=== PATIENT | male | born 1950 | race Caucasian/White ===

== ENCOUNTER 2018-02-06 18:08 | Emergency (ER) | payer OTHER ==
--- NOTE | 2018-02-06 18:19 | PDOC ---
History of Present Illness - History of Present Illness Initial Comments: 02/06/18 18:28 Patient is a 67 year old male, who presents to the ED with hand injury s/p dog bite. Patient states that he got in between his medium sized dog and another smaller dog and his sustained a bite on his left 4th and 5th finger. Patient states he is up-to-date on his tetanus. Surgical Hx: right hip replacement. <Kimberlee Bonilla - Last Filed: 02/06/18 21:24> <Babita Phelps - Last Filed: 02/07/18 07:12> - General Chief Complaint: Bite Stated Complaint: LEFT HAND 4TH AND 5TH FINGER DOG BITE Time Seen by Provider: 02/06/18 18:17 Past History <Kimberlee Bonilla - Last Filed: 02/06/18 21:24> <Babita Phelps - Last Filed: 02/07/18 07:12> - Past Medical History Allergies/Adverse Reactions: Allergies Allergy/AdvReac Type Severity Reaction Status Date / Time No Known Allergies Allergy Verified 02/06/18 18:09 Home Medications: Ambulatory Orders Amox-Tr/K Cl [Augmentin - 875Mg Tablet] 1 tab PO BID #14 tablet 02/06/18 Buspirone HCl [Buspar -] 5 mg PO DAILY 02/06/18 Cholecalciferol (Vitamin D3) [Vitamin D] 2,000 unit PO DAILY 02/06/18 Citalopram Hydrobromide [Celexa -] 10 mg PO DAILY 02/06/18 Omeprazole 10 mg PO DAILY 02/06/18 Oxycodone HCl/Acetaminophen [Percocet 5-325 mg Tablet] 1 tab PO Q6H PRN #8 tablet MDD 4 tabs 02/06/18 Tamsulosin HCl 0.4 mg PO DAILY 02/06/18 Review of Systems - Review of Systems Comments:: GENERAL/CONSTITUTIONAL: No fever or chills. No weakness. HEAD, EYES, EARS, NOSE AND THROAT: No change in vision. No ear pain or discharge. No sore throat. SKIN: +abrasions/puncture wound on left 4 and 5th finger. No rash <Kimberlee Bonilla - Last Filed: 02/06/18 21:24> *Physical Exam - Vital Signs Last Vital Signs Temp Pulse Resp BP Pulse Ox 98.3 F 89 20 144/99 99 02/06/18 18:08 02/06/18 18:08 02/06/18 18:08 02/06/18 18:08 02/06/18 18:08 <Kimberlee Bonilla - Last Filed: 02/06/18 21:24> - Physical Exam Comments: GENERAL: Awake, alert, and fully oriented, in no acute distress HEAD: No signs of trauma EXTREMITIES: L hand with multiple abrasions and puncture amanda to 4th and 5th digits. 1cm laceration overlying the 5th PIP joint. Remainder of extremities with normal range of motion, no edema. No clubbing or cyanosis. No cords, erythema, or tenderness NEUROLOGICAL: Cranial nerves II through XII grossly intact. Normal speech, normal gait. Motor and sensation intact. SKIN: Warm, Dry, normal turgor, no rashes. Lacerations and abrasions as noted above. <Babita Phelps - Last Filed: 02/07/18 07:12> ED Treatment Course - RADIOLOGY Radiograph Interpretation: 02/06/18 21:24 X-ray left hand Findings: Linear calcification in soft tissues dorsal to the PIP of the index finger, likely chronic. Another similar small calcification adjacent to the middle phalanx of the little finger on palmar aspect. No acute fracture or dislocation Reported by: Bruce Santacruz MD 02/06/18 20:46 EST - Consult/PCP Case Discussed with Personal Care Physician Not on Staff:: Awaiting call back from [facility]. Called at 7:50p <Kimberlee Bonilla - Last Filed: 02/06/18 21:24> Medical Decision Making - Medical Decision Making 02/06/18 19:[address] Bell at shift change. Currently wound is being irrigated. Awaiting reading of XR to determine if the opacity to the 5th digit is a bone fragment or FB. Will require sutures to the palmar surface of the 5th digit, as it overlies a joint. Augmentin has been given. <Babita Phelps - Last Filed: 02/07/18 07:12> *DC/Admit/Observation/Transfer - Attestations Scribe Attestion: 02/06/18 18:31 Documentation prepared by Kimberlee Bonilla, acting as biomedical scientist for Babita Phelps MD. <Kimberlee Bonilla - Last Filed: 02/06/18 21:24> - Discharge Dispostion Admit: No <Babita Phelps - Last Filed: 02/07/18 07:12> Diagnosis at time of Disposition: Dog bite Qualifiers: Encounter type: initial encounter Qualified Code(s): W54.0XXA - Bitten by dog, initial encounter - Discharge Dispostion Disposition: HOME Condition at time of disposition: Stable - Prescriptions Prescriptions: Amox-Tr/K Cl [Augmentin - 875Mg Tablet] 1 tab PO BID #14 tablet Oxycodone HCl/Acetaminophen [Percocet 5-325 mg Tablet] 1 tab PO Q6H PRN #8 tablet MDD 4 tabs PRN Reason: Pain - Referrals Referrals: Solo Braun MD [Staff Physician] - - Patient Instructions Printed Discharge Instructions: DI for Dog Bite Additional Instructions: Take the augmentin as prescribed for 1 week to prevent infections. You must follow up with a hand specialist within 48 hours. Call the number provided to make an appointment with our orthopedics clinic. If you experience any worsening pain, swelling, redness, abnormal drainage, or any other concerning symptoms, return to the ER immediately.
[2018-02-06] MEDS ORDERED: AMOX TR/POT CLAV 875MG/125MG TABLETS (FP) PO ONE (18:24)
[2018-02-06 18:38] VITALS: BP 144/99; PULSE 89; TEMP 98.3; BMI 27.3
[2018-02-06] MEDS ORDERED: AMOX TR/POT CLAV 875MG/125MG TABLETS (FP) ONE (19:01)
--- NOTE | 2018-02-06 20:07 | PDOC ---
*Physical Exam - Vital Signs Last Vital Signs Temp Pulse Resp BP Pulse Ox 98.3 F 89 20 144/99 99 02/06/18 18:08 02/06/18 18:08 02/06/18 18:08 02/06/18 18:08 02/06/18 18:08 ED Treatment Course - Medications Given in the ED: ED Medications Discontinued Medications Generic Name Dose Route Start Last Admin Trade Name Freq PRN Reason Stop Dose Admin Amoxicillin/Clavulanate Potassium 1 tab 02/06/18 18:24 02/06/18 19:05 Augmentin - 875mg Tablet PO 02/06/18 18:25 1 tab ONCE ONE Administration - Consult/PCP Case Discussed with Personal Care Physician Not on Staff:: Awaiting call back from [facility]. Called at 7:50p Medical Decision Making - Medical Decision Making 02/06/18 20:04 67 M with bite injury to L hand. Sign out taken from Dr. Phelps at 7PM, pending X ray and wound closure. X ray shows radio opaque fragment of 5th digit. 02/06/18 21:04 Prelim read of x-ray calls opacity likely chronic. Lac on palmar surface of 5th digit repaired with 2 sutures. Pt placed in finger splint. I spoke with MEHDI Leigh, who agrees with wound closure and discharge with antibiotics (augmentin). Pt to f/u with ortho on . Pt is well appearing, with normal vitals. Clinically stable for DC at this time. I discussed the physical exam findings, ancillary test results and final diagnoses with the patient. I answered all of the patient's questions. The patient was satisfied with the care received and felt comfortable with the discharge plan and treatment plan. The patient agrees to follow up with ortho within 24-72 hours. *DC/Admit/Observation/Transfer Diagnosis at time of Disposition: Dog bite Qualifiers: Encounter type: initial encounter Qualified Code(s): W54.0XXA - Bitten by dog, initial encounter - Discharge Dispostion Disposition: HOME Condition at time of disposition: Stable - Prescriptions Prescriptions: Amox-Tr/K Cl [Augmentin - 875Mg Tablet] 1 tab PO BID #14 tablet Oxycodone HCl/Acetaminophen [Percocet 5-325 mg Tablet] 1 tab PO Q6H PRN #8 tablet MDD 4 tabs PRN Reason: Pain - Referrals Referrals: Solo Braun MD [Staff Physician] - - Patient Instructions Printed Discharge Instructions: DI for Dog Bite Additional Instructions: Take the augmentin as prescribed for 1 week to prevent infections. You must follow up with a hand specialist within 48 hours. Call the number provided to make an appointment with our orthopedics clinic. If you experience any worsening pain, swelling, redness, abnormal drainage, or any other concerning symptoms, return to the ER immediately. - Post Discharge Activity - Attestations Physician Attestion: 02/06/18 21:08 I, Dr. Yong Bell MD, attest that this document has been prepared under my direction and personally reviewed by me in its entirety. I further attest, that it accurately reflects all work, treatment, procedures and medical decision -making performed by me. Procedures - Laceration/Wound Repair Left Finger 5th digit Wound Length: to 2.5 cm Wound Explored: clean Wound's Depth, Shape: linear Irrigated w/ Saline: Yes Anesthesia: 1% Lidocaine Amount of Anesthetic (ccs): 3 Wound Repaired With: Sutures Suture Size/Type: 4:0 Number of Sutures: 2 Sterile Dressing Applied: Yes Splint Applied: Yes Type of Splint Applied: finger splint
== END 2018-02-06 21:14 | disposition home or self-care (01) ==
LOC: FER 18:08
DX: S61.255A Open bite of left ring finger without damage to nail, initial encounter (principal); S61.257A Open bite of left little finger without damage to nail, initial encounter; W54.0XXA Bitten by dog, initial encounter; Y93.89 Activity, other specified; Y92.9 Unspecified place or not applicable
CPT/HCPCS: 73130-TC-LR-FY; 99281-25

== ENCOUNTER 2018-10-24 06:20 | Day surgery (SDC) | payer OTHER ==
[2018-10-11 19:11] VITALS: BMI 27.3
[2018-10-24] MEDS ORDERED: BUPIVACAINE HCL/PF 2.5 MG/ML - 30 ML VIAL IJ ONE (07:07)
[2018-10-24] MEDS ORDERED: LIDOCAINE HCL 2% (20ML MULTI-DOSE VIAL) NR ONE (07:07)
[2018-10-24] MEDS ORDERED: PROPOFOL 20 ML ONE ×2 (07:26)
[2018-10-24] MEDS ORDERED: LIDOCAINE HCL/PF 2% SDV 5ML VIAL ONE (07:27)
[2018-10-24] MEDS ORDERED: LIDOCAINE HCL 2% (50ML VIAL) INF ONE (07:35)
[2018-10-24] MEDS ORDERED: KETOROLAC TROMETHAMINE 30 MG/1 ML VIAL ONE (07:46)
[2018-10-24 08:11] VITALS: TEMP 97.4
[2018-10-24 08:34] VITALS: BP 112/76; PULSE 65
--- NOTE | 2018-10-24 11:40 | OP ---
DATE OF OPERATION: 10/24/2018 PREOPERATIVE DIAGNOSIS: Left ring trigger-finger. POSTOPERATIVE DIAGNOSIS: Left ring trigger-finger. OPERATIVE PROCEDURE: Left ring trigger-finger release. SURGEON: Solo Kennedy MD ANESTHESIA: Local with sedation. COMPLICATIONS: None. ESTIMATED BLOOD LOSS: Minimal. INDICATIONS FOR PROCEDURE: The patient is a 68-year-old male with the above findings. He was indicated for operative treatment. The risks, benefits, and alternatives were discussed with the patient at length. Proper informed consent was obtained. DESCRIPTION OF PROCEDURE: After proper identification of the patient and the correct operative site, the patient was brought to the operating room and placed supine on the operating room table. All bony prominences were well padded. Sedation and local anesthesia were given. Left upper extremity was prepped and draped in the usual sterile fashion. Esmarch bandage used to exsanguinate the left upper extremity. A tourniquet was inflated to 250 mmHg. A longitudinal incision was made over the A1 glenna to the ring finger. Incision was taken sharply through the skin with blunt and sharp dissection through subcutaneous tissues. A1 glenna was identified and divided. Patient was asked to flex and extend his finger, and no further triggering was noted. Wound was irrigated and repaired with a 5-0 nylon suture. Sterile dressings were applied. Patient was brought to the recovery room in stable condition. He tolerated the procedure well. SOLO KENNEDY M.D. [id number]
== END 2018-10-24 08:34 | disposition home or self-care (01) ==
LOC: FASU 06:20
PROVIDERS: ATTEND Orthopaedic Surgery Hand Surgery
PROC: 0LN80ZZ Release Left Hand Tendon, Open Approach (ICD-10-PCS; principal; 2018-10-24 07:30)
DX: M65.342 Trigger finger, left ring finger (principal)